=== PATIENT | female | born 1975 | race Caucasian/White ===

== ENCOUNTER 2016-08-23 10:32 | Emergency (ER) | payer OTHER ==
--- NOTE | ~2016-08-23 | EKG ---
PATIENT: BELEN GUTHRIE UNIT #: [id number] Ventricular Rate: 74 BPM Atrial Rate: 74 BPM P-R Interval: 150 ms QRS Duration: 96 ms Q-T Interval: 394 ms QTC Calculation(Bezet): 437 ms P Wahoo: 56 degrees Calculated R Wahoo: 12 degrees Calculated T Wahoo: 37 degrees Diagnosis Line: Normal sinus rhythm Diagnosis Line: Normal ECG Diagnosis Line: No previous ECGs available Diagnosis Line: Confirmed by AJIT DUDLEY MD ([id number]) on 08/26/2016 Diagnosis Line: 10:44:55 PM INTERPRETING MD: OCTAVIA SQUIRES
--- NOTE | ~2016-08-23 | CR72 ---
[facility] A Service of [facility] & [facility] RADIOLOGY TEXT RESULTS PATIENT: BELEN GUTHRIE LOCATION: [facility] : 71 UNIT #: [id number] AGE: [address]: Carmine Urbina MD SEX: F ORDER DR: [id number] [facility] [address] [place], [place] [address] [id number] E MR#: [id number] Acc #: [id number] NAME: BELEN GUTHRIE : 1975 SEX: F STUDY DATE/TIME: 08/23/2016 10:24 UNIT: [facility] ROOM: STUDY DESCRIPTION: CR Chest Single View Portable Attending Physician: Carmine Urbina M.D. Ordering Physician: Carmine Urbina M.D. Primary Care Physician: Dorian Romano M.D. MEDICAL IMAGING REPORT This report is preliminary unless electronic signature is present EXAM Chest portable, 08/23/2016 10:24 hours HISTORY Chest pain for 1 week, history of hypertension and asthma. COMPARISON 03/01/2014 FINDINGS Portable upright chest demonstrates moderate cardiomegaly with tortuous aorta. Heart size has increased from 03/01/2014. Pulmonary vascularity is within normal limits. No definite pulmonary or pleural findings. IMPRESSION Moderate cardiomegaly appearing increased from 03/01/2014. The lungs are clear and there are no effusions. Dictated by... Aaliyah Pascual M.D. THIS IS AN ELECTRONICALLY VERIFIED REPORT aAliyah Pascual M.D. at 08/23/2016 1:55 PM Chary TD: 08/23/2016 10:56 JOB #: [id number] MEDICAL IMAGING REPORT Page 1 of 1 COPY
[2016-08-23 10:29] LABS: BASOPHIL# 0.1 X10e3 (0-0.3); BASOPHIL% 1.2 % (0-2.5); EOSINOPHIL# 0.1 X10e3 (0-0.7); EOSINOPHIL% 0.8 % (0.0-7.0); HEMATOCRIT 39.6 % (35.0-45.0); HEMOGLOBIN 13.2 gm/dL (12.0-16.0); LYMPHOCYTE# 1.6 X10e3 (1.0-3.5); LYMPHOCYTE% 17.6 % (17.0-45.0); MEAN CELL VOLUME 81.1 FL (83-96); MEAN CORPUSCULAR HEMOGLOBIN 26.9 PG (28-34); MEAN CORPUSCULAR HGB CONC 33.2 g/dL (30-36); MEAN PLATELET VOLUME 7.7 FL (6.5-11.5); MONOCYTE# 0.5 X10e3 (0-1.0); MONOCYTE% 5.8 % (3.0-12.0); NEUTROPHIL# 6.8 X10e3 (1.5-7.1); NEUTROPHIL% 74.6 % (40-75); PLATELET COUNT 317 X10e3 (140-420); RED BLOOD COUNT 4.89 X10e (3.90-5.30); RED CELL DISTRIBUTION WIDTH 13.8 % (11.0-15.5); WHITE BLOOD COUNT 9.1 X10e3 (4.0-10.5)
[2016-08-23 10:31] LABS: POC - CKMB <1.0 ng/mL (0.0-7.9); POC - TROPONIN <0.05 ng/mL (<=0.05)
[2016-08-23 10:32] LABS: DIFF IND NO
[~2016-08-23 10:32] MED LIST: ALBUTEROL17 GM INH; BACTRIM DS TABL1 TA2; DESYREL100 MG PO; DICLOFENAC; DIPHENHYDRAMINE50 M1 PO; FOLIC ACID; GABAPENTIN600 MG PO; HCTZ PO; KCL PO; LEXAPRO; LIORESAL10 MG PO; LITHIUM PO; METFORMIN HCL500 M1 PO; MOBIC PO; NORVASC PO; PEPCID40 MG PO; POTASSIUM99 M2; PREDNISONE PO; QVAR7.3 G1 INH; SILENOR6 MG PO; TEGRETOL PO; WELLBUTRIN SR150 M1 PO; ZITHROMAX PO
[2016-08-23 10:51] LABS: PARTIAL THROMBOPLASTIN TIME 24.3 SECONDS (23.5-31.3); PROTHROMBIN TIME (PATIENT) 10.4 SECONDS (9.6-11.5)
[2016-08-23 11:13] LABS: ALBUMIN SERUM 3.9 g/dL (3.5-5.0); BILIRUBIN, DIRECT 0.1 mg/dL (0.0-0.2); BILIRUBIN,INDIRECT 0.6 mg/dL (0.0-0.9); BILIRUBIN,TOTAL 0.7 mg/dL (0.2-2.0); BUN/CREATININE RATIO 15.71; CALCIUM SERUM 8.7 mg/dL (8.4-10.2); CREATININE SERUM 0.7 mg/dL (0.6-1.4); GLOM FILT RATE Estimated 106.1 mL/min (>60); POTASSIUM 3.1 mmol/L (3.5-5.1); PROTEIN TOTAL SERUM 6.9 g/dL (6.0-8.3)
== END 2016-08-23 11:58 | disposition home or self-care (01) ==
LOC: CED 10:32
PROVIDERS: Emergency Medicine
DX: R07.9 Chest pain, unspecified (principal); E11.9 Type 2 diabetes mellitus without complications; F17.200 Nicotine dependence, unspecified, uncomplicated; Z88.0 Allergy status to penicillin; Z88.2 Allergy status to sulfonamides; Z91.012 Allergy to eggs; Z91.011 Allergy to milk products; Z91.040 Latex allergy status
CPT/HCPCS: 36415; 71010; 80048; 80076; 82553; 83880; 84484; 85025; 85610; 85730; 93005; 99284